=== PATIENT | male | born 1965 | race Caucasian/White ===

== ENCOUNTER 2022-07-13 06:19 | Outpatient (CLI) | payer OTHER ==
[~2022-07-13] VITALS: Ht 175.3 cm; Wt 70.6 kg
== END 2022-07-13 16:23 ==
LOC: PREOP 06:19
PROVIDERS: ATTEND Surgery
DX: Z01.818 Encounter for other preprocedural examination (principal)

== ENCOUNTER 2022-07-25 07:49 | Day surgery (SDC) | payer OTHER ==
[~2022-07-25] VITALS: Ht 175.3 cm; Wt 70.6 kg
[2022-07-25] MEDS ORDERED: LACTATED RINGERS 1,000 ML IV STA (07:52)
[2022-07-25 08:13] VITALS: BP 194/102
[2022-07-25] MEDS ORDERED: PROPOFOL INJECTION 50 ML IV ONE (08:13)
--- NOTE | 2022-07-25 08:14 | Progress Note-Pre Operative ---
Pre-Operative Progress Note Date of Available H&P: Jul 05, 2022 Date H&P Reviewed: Jul 25, 2022 Time H&P Reviewed: 08:10 History & Physical: H&P Reviewed, Patient Examed, No changes noted Pre-Operative Diagnosis: Hematochezia JUAN LUIS SANCHEZ DO Jul 25, 2022 08:14
--- NOTE | 2022-07-25 09:48 | Anesthesia-General Post-Op ---
MAC Patient Condition Mental Status/LOC: Same as Preop Cardiovascular: Satisfactory Nausea/Vomiting: Absent Respiratory: Satisfactory Pain: Controlled Complications: Absent Post Op Complications Complications None Follow Up Care/Instructions Patient Instructions None needed. Anesthesiology Discharge Order Discharge Order Patient is doing well, no complaints, stable vital signs, no apparent adverse anesthesia problems. No complications reported per nursing. BRITTANY LLOYD CRNA Jul 25, 2022 09:48
--- NOTE | 2022-07-25 09:50 | Progress Note-Post Operative ---
Post-Operative Progess Note Surgeon (s)/Banking Management Consulting Manager (s) Surgeon JUAN LUIS SANCHEZ DO Banking Management Consulting Manager: LILIAM Colbert Pre-Operative Diagnosis Hematochezia Post-Operative Diagnosis Polyp diverticula int hemorrhoids Procedure & Operative Findings Date of Procedure 07/25/22 Procedure Performed/Findings Colonoscopy with snare polypectomy PROCEDURE NOTE: After informed consent was obtained, the patient was brought to the endoscopy suite, placed in bed in left lateral decubitus position. He was administered IV sedation by the ANESTHESIOLOGIST ASSISTANT who then monitored his vitals the entire time, heart rate, blood pressure and pulse ox and the scope was inserted, pushed all the way to about 150 cm and pushed into the cecum, took a picture of appendiceal orifice and noted the ileocecal valve. On the way in had noted diverticula on the left side and took a picture of them. Then slowly withdrew the scope insufflating to look circumferentially at the sierra starting in the cecum and up the ascending colon. Found a polyp in the ascending colon and removed it with snare polypectomy. Continued up to the hepatic flexure, then down the transverse colon, splenic flexure, into the descending colon, down into the sigmoid and then into the rectal vault. Found two polyps in the rectum and removed these with snare. Finally, retroflexed the scope and took a picture of the internal hemorrhoids. The patient tolerated the procedure. He was recovered in endoscopy suite. Recommended for repeat colonoscopy in 5 years. Anesthesia Type IV sedation by ANESTHESIOLOGIST ASSISTANT Estimated Blood Loss Estimated blood loss (mL): scant Specimens/Packing Specimens Removed Asc colon polyp rectal polyp x 2 JUAN LUIS SANCHEZ DO Jul 25, 2022 09:50
--- NOTE | 2022-07-25 09:51 | Endoscopy Discharge Instruct ---
Endo Procedure/Findings Findings 1.: Polyp 2.: Diverticulosis 3.: Internal Hemorrhoids Discharge Instructions - Activity: You might feel a little sleepy until tomorrow. This is due to the medicine you received to relax you. Until tomorrow, you should: NOT drive a car, operate machinery or power tools. NOT drink any alcoholic beverages. NOT make any important decisions or sign importortant papers. Do not return to work until tomorrow, unless otherwise instructed. Resume previous activities tomorrow. Diet: Start by taking liquids. If you tolerate liquids, advance to solid food. 1.: Colonscopy in 5 years Notify Physician - If you experience excessive bleeding, unusual abdominal pain, fever, or chest pain, contact your doctor immediately. JUAN LUIS SANCHEZ DO Jul 25, 2022 09:51
[2022-07-25 09:52] VITALS: BP 115/71
[2022-07-25 09:57] VITALS: BP 129/81
[2022-07-25 10:00] VITALS: BP 129/81
[2022-07-25 10:15] VITALS: BP 129/81
== END 2022-07-25 10:21 | disposition home or self-care (01) ==
LOC: ENDO 07:49
PROVIDERS: ATTEND Surgery
DX: D12.2 Benign neoplasm of ascending colon (principal); K62.1 Rectal polyp; K57.31 Diverticulosis of large intestine without perforation or abscess with bleeding; K64.8 Other hemorrhoids; F17.210 Nicotine dependence, cigarettes, uncomplicated; Z28.310 Unvaccinated for COVID-19
CPT/HCPCS: 88305